=== PATIENT | male | born 1960 | race Caucasian/White ===

== ENCOUNTER 2021-03-06 14:58 | Emergency (ER) | payer SELFPAY ==
[~2021-03-06] VITALS: Ht 190.5 cm; Wt 99.5 kg
[2021-03-06] MEDS ORDERED: LEVOTHYROXINE75 MCG PO (16:15)
[2021-03-06] MEDS ORDERED: AUGMENTIN 875-1 EACH PO (17:02)
== END 2021-03-06 17:09 | disposition home or self-care (01) ==
LOC: FSED 15:15
DX: J06.9 Acute upper respiratory infection, unspecified (principal); B34.9 Viral infection, unspecified; J32.9 Chronic sinusitis, unspecified; Z20.822 Contact with and (suspected) exposure to COVID-19
CPT/HCPCS: 99283; U0002